=== PATIENT | male | born 1985 | race Caucasian/White ===

== ENCOUNTER 2019-09-14 09:19 | Outpatient (CLI) | payer BC, SELFPAY ==
[2019-09-14 09:35] LABS: Epithelial Count Semen Rare /hpf; Pathology Referral Yes; Red Blood Count Semen Rare /hpf; Sperm Immotility 40 % (50-60); Sperm Non-Progressive Motility 0 % (5-10); Sperm Progressive Motility 60 % (31-34); Viscosity Semen Normal; White Blood Count Semen 0-4 /hpf
[2019-09-14 10:00] LABS: Side 1 92; Side 2 86
== END 2019-09-14 09:20 | disposition home or self-care (01) ==
LOC: LAB 09:23
PROVIDERS: PCP Nurse Practitioner Family; Visit Provider Obstetrics & Gynecology
DX: N46.9 Male infertility, unspecified (principal)
CPT/HCPCS: 80500; 89320

== ENCOUNTER 2021-10-31 13:58 | Outpatient (CLI) | payer BC, SELFPAY ==
--- NOTE | 2021-10-31 14:14 | US_ITS ---
WS: [id number] ULTRASOUND SOFT TISSUES LEFT lateral thorax. HISTORY: LIPOMA OF TORSO COMPARISON: None available. TECHNIQUE: 2-D and color Doppler imaging is submitted. Patient directed crime laboratory analyst to the LEFT lateral upper abdomen and lower thorax to the palpable abnor mality. There is a hyperechoic nodule which is just slightly hyperechoic to the adjacent soft tissues . Nodule measures 2.2 x 1.5 x 1.0 cm and is mobile. Most consistent with a lipoma. No increased vascu larity. US/US soft tissue/extremity [id number] IMPRESSION: Soft tissue lipoma. Corresponds to the palpable abnormality along the LEFT late ral lower thorax.
== END 2021-10-31 13:59 | disposition home or self-care (01) ==
PROVIDERS: PCP Nurse Practitioner Family; Visit Provider Nurse Practitioner Family
DX: D17.1 Benign lipomatous neoplasm of skin and subcutaneous tissue of trunk (principal)
CPT/HCPCS: 76882